=== PATIENT | female | born 1965 | race Caucasian/White ===

== ENCOUNTER 2016-09-18 07:56 | Emergency (ER) | payer OTHER ==
[~2016-09-18] VITALS: Ht 165.1 cm; Wt 80.7 kg
[2016-09-18 08:01] VITALS: BP_SYST 113
[2016-09-18] MEDS ORDERED: IBUPROFEN 400 MG TABLET PO ONE (08:30)
[2016-09-18 08:59] VITALS: BP_SYST 113
== END 2016-09-18 08:56 | disposition home or self-care (01) ==
LOC: SED 07:56
DX: S53.491A Other sprain of right elbow, initial encounter (principal); Z88.0 Allergy status to penicillin; Z88.5 Allergy status to narcotic agent; Z88.6 Allergy status to analgesic agent; Z88.8 Allergy status to other drugs, medicaments and biological substances; X58.XXXA Exposure to other specified factors, initial encounter; Y93.89 Activity, other specified; Y92.89 Other specified places as the place of occurrence of the external cause; Y99.8 Other external cause status
CPT/HCPCS: 81025; 99283

== ENCOUNTER 2017-07-18 21:55 | Emergency (ER) | payer OTHER ==
[~2017-07-18] VITALS: Ht 165.1 cm; Wt 90.7 kg
[2017-07-18 22:01] VITALS: BP_SYST 123
--- NOTE | 2017-07-18 22:05 | NUR ---
Placed in room 03 . Placed on cardiac cath technologist, blood pressure machine and pulse oximeter. To gown for exam. Side rails up.
--- NOTE | 2017-07-18 22:08 | NUR ---
Patient AAOx3, ambulatory. Patient states having pain to left leg with pain scale 6/10 for approximately 1 week prior to ER visit. Patient states pain is a sharp sensation and is located posterior to the left knee. Patient denies any mechanism of injury. Patient states "I want to rule out DVT because I have a history of PE from a long time ago". Patient is able to flex and extend left knee without an increase in pain. No deformities noted. Patient denies any complaints.
--- NOTE | 2017-07-18 22:20 | NUR ---
ER Dr. Ramsey at bedside examining patient.
[2017-07-18 23:40] VITALS: BP_SYST 126
--- NOTE | 2017-07-18 23:41 | NUR ---
Patient given written and verbal discharge instructions and verbalizes understanding. ER MD discussed with patient the results and treatment provided. Patient in stable condition. ID arm band removed. Rx of ibuprofen given. Patient educated on pain management and to follow up with PMD. Pain Scale 0/10. Opportunity for questions provided and answered.
== END 2017-07-18 23:41 | disposition home or self-care (01) ==
LOC: SED 21:55
DX: M79.662 Pain in left lower leg (principal); Z88.5 Allergy status to narcotic agent; Z88.0 Allergy status to penicillin; Z88.6 Allergy status to analgesic agent; Z88.8 Allergy status to other drugs, medicaments and biological substances
CPT/HCPCS: 93971; 99284

== ENCOUNTER 2018-10-09 18:18 | Emergency (ER) | payer OTHER ==
[~2018-10-09] VITALS: Ht 165.1 cm; Wt 86.2 kg
[2018-10-09 18:28] VITALS: BP_SYST 138
--- NOTE | 2018-10-09 18:32 | NUR ---
Patient to ER bed 08 to gown for evaluation. Side rails up.
--- NOTE | 2018-10-09 18:35 | NUR ---
Pt AAOx4 ambulated into ED referred from surgeon to r/o DVT to L leg. Pt was being prepped for surgery today to remove two lipomas from L leg, but surgeon was concerned of swelling to site and recommended an ultrasound to r/o DVT. Pt reports mild intermittent pain to L leg. No other injuries/complaints per pt/noted. Will continue to monitor.
--- NOTE | 2018-10-09 19:54 | NUR ---
ER Dr. Tavera at bedside examining patient.
--- NOTE | 2018-10-09 20:34 | NUR ---
Pt taken to ultrasound in stable condition
--- NOTE | 2018-10-09 21:25 | NUR ---
Pt returned from radiology in stable condition
--- NOTE | 2018-10-09 21:40 | NUR ---
ER Dr. Tavera at bedside updating patient.
[2018-10-09 21:53] LABS: BASOPHILS % (AUTO) 0.4 % (0.0-2.0); EOSINOPHILS # (AUTO) 0.1 K/uL (0.0-0.4); EOSINOPHILS % (AUTO) 1.8 % (0.0-4.0); HEMATOCRIT 44.5 % (36-48); HEMOGLOBIN 14.9 g/dL (12.0-16.0); LYMPHOCYTES # (AUTO) 2.3 K/uL (1.0-5.5); LYMPHOCYTES % (AUTO) 35.3 % (20.5-51.5); MEAN CORPUSCULAR HEMOGLOBIN 31 pg (27-31); MEAN CORPUSCULAR HGB CONC 34 % (32-36); MEAN CORPUSCULAR VOLUME 91 fL (79.0-98.0); MONOCYTES # (AUTO) 0.7 K/uL (0.0-1.0); MONOCYTES % (AUTO) 11.3 % (1.7-9.3); NEUTROPHILS # (AUTO) 3.4 K/uL (1.8-7.7); NEUTROPHILS % (AUTO) 51.2 % (40.0-70.0); PLATELET COUNT (AUTO) 236 K/uL (130-430); RED BLOOD CELL COUNT(AUTO) 4.91 MIL/uL (4.2-6.2); RED CELL DISTRIBUTION WIDTH 13.4 % (9.0-15.0); WHITE BLOOD COUNT (AUTO) 6.6 K/uL (4.8-10.8)
--- NOTE | 2018-10-09 21:59 | NUR ---
Ice water provided per pt request
[2018-10-09 22:08] LABS: CALCIUM 9.1 mg/dL (8.4-11.0); CREATININE 0.81 mg/dL (0.55-1.30); POTASSIUM 3.6 mmol/L (3.5-5.1)
[2018-10-09 22:14] LABS: ALBUMIN 3.9 g/dL (3.4-4.8); TOTAL BILIRUBIN 0.3 mg/dL (0.0-1.0)
[2018-10-09 22:58] VITALS: BP_SYST 124
--- NOTE | 2018-10-09 22:58 | NUR ---
Patient given written and verbal discharge instructions and verbalizes understanding. ER MD Tavera discussed with patient the results and treatment provided. Patient in stable condition. ID arm band removed. IV catheter removed intact and dressing applied, no active bleeding. No Rx given. Patient educated on pain management and to follow up with PMD. Pain Scale 0. Opportunity for questions provided and answered. Medication side effect fact sheet provided.
== END 2018-10-09 22:58 | disposition home or self-care (01) ==
LOC: SED 18:18
DX: R25.2 Cramp and spasm (principal); M79.662 Pain in left lower leg; Z90.49 Acquired absence of other specified parts of digestive tract; Z88.0 Allergy status to penicillin; Z88.6 Allergy status to analgesic agent; Z88.5 Allergy status to narcotic agent; Z88.8 Allergy status to other drugs, medicaments and biological substances
CPT/HCPCS: 36415; 80053; 83880; 85025; 85379; 93923; 93970; 99284

== ENCOUNTER 2019-10-20 18:00 | Emergency (ER) | payer OTHER ==
[~2019-10-20] VITALS: Ht 165.1 cm; Wt 75.7 kg
[2019-10-20 18:10] VITALS: BP_SYST 122
[2019-10-20 19:40] VITALS: BP_SYST 122
== END 2019-10-20 19:40 | disposition home or self-care (01) ==
LOC: SED 18:00
DX: S80.02XA Contusion of left knee, initial encounter (principal); S90.32XA Contusion of left foot, initial encounter; Z88.0 Allergy status to penicillin; Z88.8 Allergy status to other drugs, medicaments and biological substances; Z88.6 Allergy status to analgesic agent; V18.4XXA Pedal cycle driver injured in noncollision transport accident in traffic accident, initial encounter; Y93.89 Activity, other specified; Y92.89 Other specified places as the place of occurrence of the external cause; Y99.8 Other external cause status
CPT/HCPCS: 73590-TC; 99284